=== PATIENT | male | born 1960 | race Caucasian/White ===

== ENCOUNTER 2017-10-21 07:15 | Emergency (ER) | payer MEDICARE, OTHER ==
[~2017-10-21] VITALS: Ht 167.6 cm; Wt 66.7 kg
--- NOTE | 2017-10-21 07:20 | NUR ---
[id number] BIB CONSERVATOR FROM [facility]IDENT[facility] C/O LACERATION TO HEAD S/P GLF LOST HIS BALANCE. -KO. RR IS EVEN AND UNLABORED WITH NAD NOTED. SKIN IS WARM AND DRY. DR FRANKS AT BS FOR EVAL.
[2017-10-21] MEDS ORDERED: LIDOCAINE 1%-EPI 1:100,000 20 ML VIAL ONE (07:31)
[2017-10-21 07:42] VITALS: BP 149/91
--- NOTE | 2017-10-21 07:42 | NUR ---
Patient discharged to conservator to home in stable condition. Written and verbal after care instructions given. Patient verbalized understanding of instruction.
== END 2017-10-21 07:42 | disposition home or self-care (01) ==
LOC: ER 07:18
DX: S01.01XA Laceration without foreign body of scalp, initial encounter (principal); F84.0 Autistic disorder; W18.39XA Other fall on same level, initial encounter; Y93.89 Activity, other specified; Y92.89 Other specified places as the place of occurrence of the external cause; Y99.8 Other external cause status
CPT/HCPCS: A4606; A6402; J3490; Z7610

== ENCOUNTER 2017-10-29 10:33 | Emergency (ER) | payer MEDICARE, OTHER ==
[~2017-10-29] VITALS: Ht 167.6 cm; Wt 74.8 kg
[2017-10-29 10:39] VITALS: BP 161/94
== END 2017-10-29 11:30 | disposition home or self-care (01) ==
LOC: ER 10:35
DX: S01.01XD Laceration without foreign body of scalp, subsequent encounter (principal); F84.0 Autistic disorder
CPT/HCPCS: A4606; Z7502; Z7610

== ENCOUNTER 2019-08-14 08:08 | Inpatient (IN) | payer MEDICARE, MEDICAID ==
[~2019-08-14] VITALS: Ht 165.1 cm; Wt 72.6 kg
--- NOTE | 2019-08-14 08:15 | NUR ---
LAMAR 89 FROM PRISON C/O SYNCOPAL EPISODE AND VOMITING 30MINS AGO, TO ER BED 1, HOOKED TO MONITOR, CHANGED TO HOSP GOWN, WARM BLANKET PROVIDED, AO x 1, BREATHING EVEN AND UNLABORED, PATIENT NOTED ALTERED MENTATION, PATIENT ABLE TO MOVE ALL EXTREMITIES, DR PLAZA AT BEDSIDE
[2019-08-14 08:32] LABS: BASOPHILS # (AUTO) 0.1 /CMM (0.0-0.2); BASOPHILS % (AUTO) 0.8 % (0.0-2.0); EOSINOPHILS % (AUTO) 1.5 % (0.0-6.0); HEMATOCRIT 39 % (39-51); HEMOGLOBIN 13.1 g/dL (13.5-17.5); LYMPHOCYTES # (AUTO) 2.7 /CMM (0.8-4.8); LYMPHOCYTES % (AUTO) 41.9 % (20.0-44.0); MEAN CORPUSCULAR HGB CONC 34 g/dl (31.0-36.0); MEAN CORPUSCULAR VOLUME 84 fL (80-96); MONOCYTES # (AUTO) 0.5 /CMM (0.1-1.30); MONOCYTES % (AUTO) 8.2 % (2.0-12.0); NEUTROPHILS # (AUTO) 3.1 /CMM (1.8-8.9); NEUTROPHILS % (AUTO) 47.6 % (43.0-81.0); PLATELET COUNT (AUTO) 347 /CMM (150-450); RED BLOOD CELL COUNT(AUTO) 4.63 MIL/uL (4.5-6.0); WHITE BLOOD COUNT (AUTO) 6.5 K/uL (4.3-11.0)
--- NOTE | 2019-08-14 08:32 | NUR ---
WHEELED OUT VIA [facility] FOR CT SCAN
[2019-08-14 08:40] LABS: CALCIUM, SERUM 8.9 mg/dL (8.5-10.1); CARBON DIOXIDE 27 mmol/L (21-32); CHLORIDE 103 mmol/L (98-107); CREATININE 0.9 mg/dL (0.6-1.3); GLUCOSE 163 mg/dL (74-106); POTASSIUM 4.1 mmol/L (3.5-5.1); SODIUM SERUM 137 mmol/L (136-145); UREA NITROGEN, BLOOD 17 mg/dL (7-18)
[2019-08-14 08:45] LABS: ALANINE AMINOTRANSFERASE 22 U/L (12-78); ALBUMIN 3.6 g/dL (3.4-5.0); ALKALINE PHOSPHATASE 44 U/L (46-116); ASPARTATE AMINOTRANSFERASE 15 U/L (15-37); BILIRUBIN,DIRECT 0.1 mg/dL (0.0-0.2); BILIRUBIN,TOTAL 0.3 mg/dL (0.2-1.0); TOTAL PROTEIN, SERUM 6.5 g/dL (6.4-8.2)
[2019-08-14] MEDS ORDERED: DIVA500T54 PO (10:09)
[2019-08-14] MEDS ORDERED: EZET10TA32 PO (10:09)
[2019-08-14] MEDS ORDERED: SIMV-46 PO (10:09)
[2019-08-14] MEDS ORDERED: CHOL200076 PO (10:09)
[2019-08-14] MEDS ORDERED: FENO145T21 PO (10:09)
--- NOTE | 2019-08-14 10:27 | NUR ---
PANEL PAGED. AWAITING CALL BACK.
--- NOTE | 2019-08-14 10:50 | NUR ---
CALLED NURSING SUP FOR TELE BED.
--- NOTE | 2019-08-14 11:10 | NUR ---
NURSING SUP GAVE TELE [phone].
[2019-08-14] MEDS ORDERED: IV NS 0.9% 1,000 ML IV PRN (12:07)
--- NOTE | 2019-08-14 12:19 | NUR ---
REPORT GIVEN TO CARMEN PALMA OF TELE
[2019-08-14] MEDS ORDERED: ACETAMINOPHEN 325 MG TABLET PO PRN (12:30)
[2019-08-14] MEDS ORDERED: ZOLPIDEM TARTRATE 5 MG TABLET PO PRN (12:30)
[2019-08-14] MEDS ORDERED: Z GUARD REMEDY 2 OZ OINT TP PRN (12:30)
[2019-08-14] MEDS ORDERED: HYDROCODONE/APAP 5/325MG 1 EACH TABLET PO PRN (12:30)
[2019-08-14] MEDS ORDERED: MAG HYDROX/AL HYDROX/SIMETH 30 ML UDC PO PRN (12:30)
[2019-08-14] MEDS ORDERED: MAGNESIUM HYDROXIDE 30 ML UDC PO PRN (12:30)
[2019-08-14] MEDS ORDERED: ONDANSETRON HCL/PF 4 MG/2 ML VIAL IVP PRN (12:30)
--- NOTE | 2019-08-14 12:45 | NUR ---
DIRECTOR OF ASSISTED LIVING NOTES RECEIVED PATIENT FROM ER VIA [place]. PATIENT ORIENTED TO ROOM AND PLACED IN BED. BED IN LOWEST LOCKED POSITION WITH SIDE RAILS UP X2. CALL LIGHT WITHIN REACH. NO SOB/ RESPIRATORY DISTRESS NOTED. MOTHER AT BEDSIDE. IV ON LEFT FOREARM 18 GAUGE, PATENT AND INTACT. WILL CONTINUE TO MONITOR.
[2019-08-14 16:00] VITALS: BP 123/48
[2019-08-14] MEDS ORDERED: EZETIMIBE 10 MG TABLET PO SCH (18:00)
[2019-08-14] MEDS ORDERED: DIVALPROEX SODIUM 500 MG TABLET.DR PO SCH (18:00)
[2019-08-14] MEDS ORDERED: DIVALPROEX SODIUM 500 MG TABLET.DR PO ONE (18:00)
--- NOTE | 2019-08-14 19:00 | NUR ---
CHANNEL OPENER NOTE RECEIVED PT IN STABLE CONDITION, NOTED WITH MOM AT BEDSIDE. NO SIGNS OF SOB OR DISTRESS, NO C/O PAIN OR N/V. IV IN L FA #18, INTACT AND IN PLACE. ALL CURRENT NEEDS ATTENDED TO. BED LOW, LOCKED, UPPER RAILS UP, AND CALL LIGHT WITHIN REACH. WILL CONT. TO MONITOR.
--- NOTE | 2019-08-14 19:00 | NUR ---
METAL CONTROL COORDINATOR CLOSING NOTES PATIENT IS LAYING IN BED WATCHING TV. BED IS IN LOWEST LOCKED POSITION, SEMI FOWLERS WITH SIDE RAILS UP X2. CALL LIGHT IS WITHIN REACH. MOTHER AT BEDSIDE. ALL DUE MEDS HAVE BEEN GIVEN. IV ON LEFT FOREARM IS PATENT. PATIENT APPEARS COMFORTABLE, NO COMPLAINTS OF PAIN. NO SOB/ RESPIRATORY DISTRESS NOTED. WILL ENDORSE REPORT TO PM NURSE.
[2019-08-14 20:25] VITALS: BP 137/65
--- NOTE | 2019-08-14 20:27 | NUR ---
Patient has hx of mild developmental delay/autism and pleasant. He resides with roommates in a senior living in the [place] address; [address] [phone]. At baseline, patient is ambulatory and independent with adl's. Hira Nath - senior living admin [phone] anticipating patient to return to his senior living once discharge. Addendum: 08/14/19 at 2027 by GERALD SAXENA RN Amended: Links added.
--- NOTE | 2019-08-15 01:37 | NUR ---
CIRCUIT WALKER NOTE PT REMAINS IN STABLE CONDITION, NOTED TO BE RESTING WITH MOM AT BEDSIDE. NO SIGNS OF SOB OR DISTRESS, NO C/O PAIN OR N/V. IV IN L FA #18, INTACT AND IN PLACE. ALL CURRENT NEEDS ATTENDED TO. BED LOW, LOCKED, UPPER RAILS UP, AND CALL LIGHT WITHIN REACH. WILL CONT. TO MONITOR AND ENDORSE TO RN FOR CAS.
--- NOTE | 2019-08-15 01:45 | NUR ---
DATA WAREHOUSING MANAGER NOTE: RECEIVED REPORT FROM MINERVA REDDY. PATIENT SLEEPING IN BED, NO ACUTE DISTRESS NOTED. BREATHING EVEN AND UNLABORED, NO SOB NOTED. BED LOCKED AND IN LOWEST POSITION, CALL LIGHT IN REACH. WILL CONTINUE TO MONITOR.
--- NOTE | 2019-08-15 06:10 | NUR ---
SOFTWARE ENGINEER NOTE: PATIENT RESTING IN BED, NO ACUTE DISTRESS NOTED. BREATHING EVEN AND UNLABORED, NO SOB NOTED. BED LOCKED AND IN LOWEST POSITION, CALL LIGHT IN REACH. WILL ENDORSE TO DAY NURSE TO CONTINUE WITH PLAN OF CARE.
[2019-08-15 07:09] LABS: BASOPHILS % (AUTO) 0.4 % (0.0-2.0); HEMATOCRIT 43 % (39-51); HEMOGLOBIN 14.1 g/dL (13.5-17.5); LYMPHOCYTES # (AUTO) 1.8 /CMM (0.8-4.8); MEAN CORPUSCULAR HGB CONC 33 g/dl (31.0-36.0); MEAN CORPUSCULAR VOLUME 84 fL (80-96); MONOCYTES # (AUTO) 0.4 /CMM (0.1-1.30); MONOCYTES % (AUTO) 6.4 % (2.0-12.0); NEUTROPHILS # (AUTO) 4.4 /CMM (1.8-8.9); NEUTROPHILS % (AUTO) 65.2 % (43.0-81.0); PLATELET COUNT (AUTO) 311 /CMM (150-450); RED BLOOD CELL COUNT(AUTO) 5.05 MIL/uL (4.5-6.0); WHITE BLOOD COUNT (AUTO) 6.7 K/uL (4.3-11.0)
[2019-08-15 07:18] LABS: CREATININE 0.9 mg/dL (0.6-1.3); MAGNESIUM 2.1 mg/dL (1.8-2.4); PHOSPHORUS 3.9 mg/dL (2.5-4.9); POTASSIUM 4.6 mmol/L (3.5-5.1)
[2019-08-15 07:21] LABS: THYROID STIMULATING HORMONE 0.606 uIU/mL (0.358-3.74)
--- NOTE | 2019-08-15 07:30 | NUR ---
RECEIVED PT. THIS AM ALERT AND ORIENTED X 2-3.MOM AT BEDSIDE.VS STABLE.
[2019-08-15 08:00] VITALS: BP 132/79
[2019-08-15] MEDS ORDERED: DIVA500T4 PO (08:54)
[2019-08-15] MEDS ORDERED: CHOLECALCIFEROL 1,000 UNIT TABLET (VIT D3) PO SCH (09:00)
[2019-08-15] MEDS ORDERED: SIMVASTATIN 20 MG TABLET PO SCH (09:00)
[2019-08-15] MEDS ORDERED: FENOFIBRATE NANOCRYS (145 MG) 145 MG TABLET PO SCH (09:00)
[2019-08-15] MEDS ORDERED: DIVALPROEX SODIUM 500 MG TABLET.DR PO SCH (12:00)
--- NOTE | 2019-08-15 12:30 | NUR ---
DR. RODRIGUEZ,DR. NOLBERTO GERMAIN IN TO SEE PT.ORDERS GIVEN.APPETITE GOOD LABS WITHIN NORMAL RANGE.
--- NOTE | 2019-08-15 13:30 | NUR ---
HEP LOCK OUT,ALL PAPERWORK SIGNED.AWARE TO FOLLOW UP WITH PMD.ALL PAPERS GIVEN TO PT'S MOTHER.TAKEN VIA W/C TO LOBBY.PT'S MOTHER TAKING SHE AND SON HOME VIA [employer].
== END 2019-08-15 13:30 | disposition home or self-care (01) | DRG 101 ==
LOC: ER 08:09 → TELE 12:17 → MED 08-15 08:31
DX: G40.909 Epilepsy, unspecified, not intractable, without status epilepticus (principal); F84.0 Autistic disorder; F70 Mild intellectual disabilities; E78.5 Hyperlipidemia, unspecified; R00.1 Bradycardia, unspecified
CPT/HCPCS: 36415; 70450-TC; 71045-TC; 80048-TC; 80061-TC; 80076-TC; 83735-TC; 84100-TC; 84443-TC; 84484-TC; 85025-TC; 85730-TC; 87081-TC; 97116-TC; 97530-TC; G0378; J7030

== ENCOUNTER 2022-03-18 09:55 | Emergency (ER) | payer MEDICARE, OTHER ==
[~2022-03-18] VITALS: Ht 165.1 cm; Wt 74.4 kg
[~2022-03-18 09:55] MED LIST: CHOL200076 PO; DIVA500T4 PO; DIVA500T54 PO; EZET10TA32 PO; FENO145T21 PO; SIMV-46 PO
--- NOTE | 2022-03-18 10:04 | NUR ---
[facility] [address] [facility] [address] [address] APPRENTICE [phone]
--- NOTE | 2022-03-18 10:05 | NUR ---
BIBRA - FROM SNF , SEIZURE, A&0X 2, BS =[phone]
--- NOTE | 2022-03-18 10:53 | NUR ---
[facility] CALLED FOR TRANSPORT ETA 1200
--- NOTE | 2022-03-18 11:10 | NUR ---
sister is Stalin # [phone] stated she believes his changes is due to med change from psychiatrist of med clonopine to med Caplyta just yesterday and this may have caused change
[2022-03-18 14:58] VITALS: BP 132/64
== END 2022-03-18 13:40 ==
LOC: ER 09:58
DX: G40.509 Epileptic seizures related to external causes, not intractable, without status epilepticus (principal); E78.5 Hyperlipidemia, unspecified; Z79.899 Other long term (current) drug therapy
CPT/HCPCS: 70450-TC